=== PATIENT | female | born 1995 | race African-American/Black ===

== ENCOUNTER 2019-03-05 05:14 | Inpatient (IN) | payer MEDICAID ==
[~2019-03-05] VITALS: Ht 170.2 cm; Wt 84.8 kg
[2019-03-05] MEDS ORDERED: ACYC400T5 PO (06:08)
[2019-03-05] MEDS ORDERED: PREN1TAB23 PO (06:08)
[2019-03-05] MEDS ORDERED: FERR325T6 PO (06:08)
[2019-03-05] MEDS ORDERED: METHYLERGONOVINE MALEATE 0.2 MG/ML IM PRN (08:45)
[2019-03-05] MEDS ORDERED: BUTORPHANOL TARTRATE 2 MG/ML VIAL IV PRN (08:45)
[2019-03-05] MEDS ORDERED: LIDOCAINE HCL 1% 20ML VIAL (Pyxis) INJ INFIL SCH (08:45)
[2019-03-05] MEDS ORDERED: DEXT 5%/LR + PITOCIN 20UNITS/L 1,000 ML IV SCH ×2 (08:59→13:18)
[2019-03-05] MEDS: LACTATED RINGERS 1,000 ML IV SCH ×2 (09:55→22:37)
[2019-03-05 10:17] LABS: BASOPHILS % 0.4 % (0.0-2.0); CLARITY URINE CLEAR (CLEAR); COLOR URINE ORANGE (YELLOW); EOSINOPHILS % 0.8 % (0.0-5.0); HEMATOCRIT. 37.4 % (36.0-48.0); HEMOGLOBIN. 12.3 g/dL (12.0-16.0); KETONES URINE NEGATIVE (NEGATIVE); LEUKOCYTE ESTERASE URINE TRACE (NEGATIVE); MEAN CORPUSCULAR VOLUME 94.2 fL (81.0-99.0); MEAN PLATELET VOLUME 9.3 fl (7.4-10.4); MONOCYTES % 10.1 % (2.0-8.0); NEUTROPHILS % 63.7 % (40.0-76.0); NITRITE URINE NEGATIVE (NEGATIVE); OCCULT BLOOD URINE 3+ (NEGATIVE); PH URINE 6.5 (4.5-8.0); PLATELET 254 x1000/uL (130-400); PROTEIN URINE NEGATIVE (NEGATIVE); RED BLOOD CELL COUNT 3.96 mill/uL (4.2-5.4); RED CELL DISTRIBUTION WIDTH 16.4 % (11.6-14.6); SPECIFIC GRAVITY URINE 1.006 (1.005-1.030); UROBILINOGEN URINE 0.2 E.U./dL (0.2-1.0)
[2019-03-05 10:25] LABS: INR 0.9; PARTIAL THROMBOPLASTIN TIME 28.9 sec (23.4-31.0); PROTHROMBIN TIME 9.4 sec (9.6-11.0)
[2019-03-05 10:43] LABS: *AMPHETAMINES SCREEN URINE NEGATIVE (NEGATIVE); *BARBITURATES SCREEN URINE NEGATIVE (NEGATIVE); *BENZODIAZEPINES SCREEN URINE NEGATIVE (NEGATIVE); *COCAINE SCREEN URINE NEGATIVE (NEGATIVE); METHADONE URINE SCREEN NEGATIVE (NEGATIVE); OPIATES URINE SCREEN NEGATIVE (NEGATIVE)
[2019-03-05 10:44] LABS: CANNABINOID URINE SCREEN NEGATIVE (NEGATIVE); PHENCYCLIDINE URINE SCREEN NEGATIVE (NEGATIVE)
[2019-03-05 12:11] LABS: HEPATITIS B SURFACE ANTIGEN NEGATIVE
[2019-03-06] MEDS ORDERED: AMPICILLIN 2,000 MG in SODIUM CHLORIDE 0.9% 100 ML IV SCH (04:30)
[2019-03-06] MEDS ORDERED: ROPIVACAINE HCL/PF EPIDURAL 200 ML EPI SCH (04:45)
[2019-03-06] MEDS ORDERED: GENTAMICIN 80MG PREMIX 100 ML IV SCH ×2 (06:00→14:00)
[2019-03-06] MEDS: CLINDAMYCIN 900 MG in DEXTROSE 5% WATER 50 ML IV SCH ×2 (07:20→15:00)
[2019-03-06] MEDS: LACTATED RINGERS 1,000 ML IV SCH (10:15)
[2019-03-06] MEDS ORDERED: LANOLIN OINT 7GM TUBE TOP PRN (18:15)
[2019-03-06] MEDS ORDERED: METHYLERGONOVINE MALEATE 0.2 MG/ML IM PRN (18:15)
[2019-03-06] MEDS ORDERED: IBUPROFEN 400MG TABLET PO PRN (18:15)
[2019-03-06] MEDS ORDERED: RHO(D) IMMUNE GLOBULIN 300 MCG/SYR IM PRN (18:15)
[2019-03-06] MEDS ORDERED: DEXT 5%/LR + PITOCIN 20UNITS/L 1,000 ML IV SCH (18:15)
[2019-03-06 20:40] VITALS: BP 123/73
[2019-03-06] MEDS: IBUPROFEN 800MG TABLET PO PRN (21:09)
[2019-03-06 23:31] VITALS: BP 107/50
[2019-03-07 05:13] VITALS: BP 120/54
[2019-03-07 07:53] VITALS: BP 90/52
[2019-03-07] MEDS: PRENATAL VIT/FE FUMARATE/FA TABLET PO SCH (09:04)
[2019-03-07] MEDS: IBUPROFEN 800MG TABLET PO PRN (09:04)
[2019-03-07 10:03] LABS: BASOPHILS % 0.4 % (0.0-2.0); EOSINOPHILS % 0.5 % (0.0-5.0); HEMATOCRIT. 33.7 % (36.0-48.0); HEMOGLOBIN. 11.3 g/dL (12.0-16.0); LYMPHOCYTES % 11.6 % (20.0-50.0); MEAN CORPUSCULAR HEMOGLOBIN 31.5 pg (28.0-32.0); MEAN CORPUSCULAR VOLUME 94.2 fL (81.0-99.0); MEAN PLATELET VOLUME 9.1 fl (7.4-10.4); MONOCYTES % 8.5 % (2.0-8.0); PLATELET 205 x1000/uL (130-400); RED BLOOD CELL COUNT 3.57 mill/uL (4.2-5.4); RED CELL DISTRIBUTION WIDTH 17.2 % (11.6-14.6)
[2019-03-07 16:17] VITALS: BP 116/64
[2019-03-07 22:00] VITALS: BP 109/72
[2019-03-08] MEDS ORDERED: IBUP-2029 MT (04:20)
[2019-03-08 07:55] VITALS: BP 121/75
[2019-03-08] MEDS: IBUPROFEN 800MG TABLET PO PRN (09:06)
[2019-03-08] MEDS: PRENATAL VIT/FE FUMARATE/FA TABLET PO SCH (09:06)
[2019-03-08] MEDS ORDERED: TETANUS, DIPHTHERIA, PERTUSSIS VAC/PF 0.5ML (>7YR OLD) IM ONE (10:30)
== END 2019-03-08 12:55 | disposition home or self-care (01) | DRG 560 ==
LOC: OBSVTOIN 05:14 → 8 EST LDRP 05:14 → 8 EST A/PP 03-06 20:40
PROVIDERS: ADMIT Obstetrics & Gynecology; ATTEND Obstetrics & Gynecology
PROC: 10E0XZZ Delivery of Products of Conception, External Approach (ICD-10-PCS; principal; 2019-03-06)
PROC: 3E0R3BZ Introduction of Anesthetic Agent into Spinal Canal, Percutaneous Approach (ICD-10-PCS; 2019-03-06)
PROC: 00HU33Z Insertion of Infusion Device into Spinal Canal, Percutaneous Approach (ICD-10-PCS; 2019-03-06)
PROC: 0HQ9XZZ Repair Perineum Skin, External Approach (ICD-10-PCS; 2019-03-06)
DX: O48.0 Post-term pregnancy (principal); D62 Acute posthemorrhagic anemia; O70.0 First degree perineal laceration during delivery; O99.02 Anemia complicating childbirth; Z37.0 Single live birth; Z3A.40 40 weeks gestation of pregnancy
CPT/HCPCS: 36415; 76815; 76818; 80170; 80305; 81003; 86592; 86703; 86762; 86850; 86900; 87340; 90715; 99281; J0290; J0595; J1580; J2590; J2795; J3490; J7050; J7060; J7120

== ENCOUNTER 2019-03-15 11:30 | Emergency (ER) | payer MEDICAID ==
[~2019-03-15] VITALS: Ht 172.7 cm; Wt 80.0 kg
[~2019-03-15 11:30] MED LIST: FERR325T6 PO; IBUP-2029 MT; PREN1TAB23 PO
[2019-03-15 13:27] VITALS: BP 116/50
[2019-03-15] MEDS ORDERED: IBUPROFEN 600MG TABLET PO ONE (13:30)
== END 2019-03-15 13:36 | disposition home or self-care (01) ==
LOC: ER 11:30
DX: H66.91 Otitis media, unspecified, right ear (principal); H92.01 Otalgia, right ear; Z87.891 Personal history of nicotine dependence; Z88.0 Allergy status to penicillin; Z79.899 Other long term (current) drug therapy
CPT/HCPCS: 99283

== ENCOUNTER 2023-04-02 00:33 | Emergency (ER) | payer MEDICAID ==
[~2023-04-02] VITALS: Ht 170.2 cm; Wt 82.9 kg
[2023-04-02 00:53] VITALS: O2SAT 98
[2023-04-02] MEDS ORDERED: ONDANSETRON 4MG ODT PO ONE (02:15)
[2023-04-02] MEDS ORDERED: MECLIZINE 25MG TABLET PO ONE (02:15)
[2023-04-02 03:20] LABS: BASOPHILS % 0.4 % (0.0-2.0); EOSINOPHILS % 0.2 % (0.0-5.0); HEMATOCRIT. 38.9 % (36.0-48.0); LYMPHOCYTES % 24.5 % (20.0-50.0); MEAN CORPUSCULAR HGB CONC 33.5 g/dL (31.0-37.0); MEAN CORPUSCULAR VOLUME 89.5 fL (81.0-99.0); MEAN PLATELET VOLUME 8.7 fl (7.4-10.4); MONOCYTES % 8.1 % (2.0-8.0); NEUTROPHILS % 66.8 % (40.0-76.0); PLATELET 246 x1000/uL (130-400); RED BLOOD CELL COUNT 4.34 mill/uL (4.2-5.4); RED CELL DISTRIBUTION WIDTH 13.9 % (11.6-14.6)
[2023-04-02 03:38] LABS: CHLORIDE 107 mEq/L (98-107); INDEX HEMOLYSI 1 (1-3); INDEX ICTERIC 1 (1-4); INDEX LIPEMIC 1 (1-3); POTASSIUM 3.7 mEq/L (3.5-5.1); SODIUM 136 mEq/L (136-145)
[2023-04-02 03:41] LABS: ALBUMIN 3.6 g/dL (3.4-5.0); CALCIUM 8.4 mg/dL (8.5-10.1); CARBON DIOXIDE 26 mEq/L (21-32); GLUCOSE 110 mg/dL (70-105); UREA NITROGEN BLOOD 10 mg/dL (7-21)
[2023-04-02 03:47] LABS: ALANINE AMINOTRANSFERASE 15 IU/L (13-61); ASPARTATE AMINOTRANSFERASE 11 IU/L (15-37); BILIRUBIN TOTAL 0.4 mg/dL (0.1-1.0); CREATININE 0.7 mg/dL (0.6-1.3)
[2023-04-02] MEDS ORDERED: MECL-299 PO (05:04)
[2023-04-02 06:28] VITALS: BP 140/78; PULSE 78; RESP 16; TEMP 98.5
== END 2023-04-02 06:35 | disposition home or self-care (01) ==
LOC: ER 00:33
DX: R42 Dizziness and giddiness (principal); F41.9 Anxiety disorder, unspecified; Z79.899 Other long term (current) drug therapy
CPT/HCPCS: 99283; 80053; 81025; 85025; 36415; J8597; Q0162